=== PATIENT | male | born 1995 | race African-American/Black ===

== ENCOUNTER 2017-11-18 05:34 | Emergency (ER) | payer OTHER ==
--- NOTE | 2017-11-18 06:26 | ED ---
General Adult HPI - General Chief complaint: Chest Pain Stated complaint: Chest Pain Time Seen by Provider: 11/18/17 06:17 Source: patient, RN notes reviewed Mode of arrival: ambulatory Limitations: no limitations - History of Present Illness Initial comments: Patient 22-year-old male presenting to the emergency room today with a chief complaint of left-sided chest wall pain over the last 2-3 days. He does not that he's been waking up in the morning was some phlegm. He states that this morning he woke up and when he was trying to clear felt increased pain to the left side of her chest wall. States is tender spot anteriorly. States he feels this when he tries to cough clears throat. Patient denies any other injury or trauma. Patient denies any significant past medical history. Denies any family history of any early cardiac disease. Patient denies any recent fever , chills, shortness of breath, chest pain, back pain, abdominal pain, nausea or vomiting, headaches or visual changes, or any other complaints. - Related Data Previous Rx's Medication Instructions Recorded Hydrocodone/Acetaminophen 1 each PO QID PRN #20 tablet 09/13/13 [Hydrocodone/Acetaminophen 5-325] SILVER sulfADIAZINE Cream 1 applic TOPICAL DAILY #400 09/13/13 [Silvadene Cream] cream..g. Ibuprofen [Motrin] 600 mg PO Q6HR PRN #40 day 11/18/17 Allergies Allergy/AdvReac Type Severity Reaction Status Date / Time No Known Allergies Allergy Verified 09/13/13 21:00 Review of Systems ROS Statement: Those systems with pertinent positive or pertinent negative responses have been documented in the HPI. ROS Other: All systems not noted in ROS Statement are negative. Past Medical History Past Medical History: No Reported History History of Any Multi-Drug Resistant Organisms: None Reported Past Surgical History: No Surgical Hx Reported Past Psychological History: No Psychological Hx Reported Smoking Status: Current every day smoker Past Alcohol Use History: Occasional Past Drug Use History: Marijuana General Exam - General Exam Comments Initial Comments: General: The patient is awake and alert, in no distress, and does not appear acutely ill. Eye: Pupils are equal, round and reactive to light, extra-ocular movements are intact. No nystagmus. There is normal conjunctiva bilaterally. No signs of icterus. Ears, nose, mouth and throat: There are moist mucous membranes and no oral lesions. Neck: The neck is supple, there is no tenderness or JVD. Cardiovascular: There is a regular rate and rhythm. No murmur, rub or gallop is appreciated. Tender to palpation over the left side of the anterior chest wall over the second through fourth rib. Respiratory: Lungs are clear to auscultation, respirations are non-labored, breath sounds are equal. No wheezes, stridor, rales, or rhonchi. Musculoskeletal: Normal ROM, no tenderness. Strength 5/5. Sensation intact. Pulses equal bilaterally 2+. Neurological: A&O x 3. CN II-XII intact, There are no obvious motor or sensory deficits. Coordination appears grossly intact. Speech is normal. Skin: Skin is warm and dry and no rashes or lesions are noted. Psychiatric: Cooperative, appropriate mood & affect, normal judgment. Limitations: no limitations Course Vital Signs 11/18/17 05:37 Temperature 97.5 F L Pulse Rate 76 Respiratory 18 Rate Blood Pressure 141/84 O2 Sat by Pulse 100 Oximetry EKG Findings - EKG Comments: EKG Findings:: EKG performed at 548: Shows normal sinus rhythm at 76 bpm. NM interval 180. QRS 114. QT/QTC 368./414. No acute ST changes. Medical Decision Making - Medical Decision Making 22-year-old male presenting for chest pain. Does admit that with coughing and try to clear his throat he's had pain that he can feel on palpation to the left side of chest wall. Pain is reproducible on palpation. Patient advised to use anti-inflammatories. Advised to return if symptoms increase worsen and follow family physician. Disposition Clinical Impression: Chest wall pain Disposition: HOME SELF-CARE Condition: Good Instructions: Chest Wall Pain (ED) Additional Instructions: Please use medication as discussed. Please follow-up with family doctor in the next 2 days of symptoms have not improved. Please return to emergency room if the symptoms increase or worsen or for any other concerns. Prescriptions: Ibuprofen [Motrin] 600 mg PO Q6HR PRN #40 day PRN Reason: Pain Is patient prescribed a controlled substance at d/c from ED?: No Referrals: None,Stated [Primary Care Provider] - 1-2 days Time of Disposition: 07:07
--- NOTE | 2017-11-18 06:53 | XR ---
EXAMINATION TYPE: XR chest 2V DATE OF EXAM: 11/18/2017 COMPARISON: NONE HISTORY: Chest pain TECHNIQUE: Frontal and lateral views of the chest are obtained. FINDINGS: Heart and mediastinum are normal. Lungs are clear. Diaphragm is normal. Bony thorax appear s normal. IMPRESSION: Normal chest
[2017-11-18 07:17] VITALS: BP 133/91; PULSE 73; RESP 16; TEMP 97
== END 2017-11-18 07:17 | disposition home or self-care (01) ==
LOC: EC 05:34
DX: R07.89 Other chest pain (principal); F17.200 Nicotine dependence, unspecified, uncomplicated
CPT/HCPCS: 71046; 93005; 99285